=== PATIENT | male | born 1970 | race Hispanic/Latino ===

== ENCOUNTER 2023-07-15 17:50 | Emergency (ER) | payer BC, OTHER ==
[2023-07-15] MEDS ORDERED: Ketorolac Tromethamine 30 MG (1 mL) VIAL ONE (18:10)
[2023-07-15] MEDS ORDERED: Acetaminophen 500 MG TAB ONE (18:10)
[2023-07-15] MEDS ORDERED: Ondansetron PF 4 MG/2 ML Vial ONE (18:10)
[2023-07-15 18:17] LABS: Hematocrit 41.9 % (42.0-52.0); Hemoglobin 14.6 g/dL (14.0-18.0); Mean Corpuscular HGB CONC 34.7 g/dL (32.0-36.0); Mean Corpuscular Hemoglobin 29.4 pg (27.0-31.0); Mean Corpuscular Volume 84.6 fl (78.0-98.0); RBC Distribution Width 10.7 % (11.5-14.5); Red Blood Cell (RBC) Count 4.96 mill/uL (4.70-6.10); White Blood Cell (WBC) Count 8.8 10x3/uL (4.8-10.8)
[2023-07-15 18:32] LABS: ALT (SGPT) 62 U/L (8-55); AST (SGOT) 66 U/L (5-34); Albumin 3.1 g/dL (3.5-5.0); Alkaline Phosphatase 98 U/L (40-110); Anion Gap 20 mmol/L (10-20); BUN (Urea Nitrogen) 23 mg/dL (8.4-25.7); Bilirubin, Total 1.1 mg/dL (0.2-1.2); Calc. Creatinine Clearance 0 mL/min (70-130); Calcium 8.5 mg/dL (7.8-10.44); Carbon Dioxide 21 mmol/L (22-29); Chloride 92 mmol/L (98-107); Estimated GFR 57; Globulin 3.2 g/dL (2.4-3.5); Glucose 247 mg/dL (70-105); Lipase 19 U/L (8-78); Magnesium 1.7 mg/dL (1.6-2.6); Potassium 3.7 mmol/L (3.5-5.1); Protein, Total 6.3 g/dL (6.0-8.3); Sodium 129 mmol/L (136-145)
[2023-07-15 18:35] LABS: Band 27 % (5-11); Lymphocytes 5 % (21-51); MDiff Complete? YES; Monocytes 6 % (0-10); Neutrophil 59 % (42-75); Platelet Count 47 10x3/uL (130-400)
[2023-07-15 18:36] LABS: Platelet Adequacy Comment Appears Decreased
[2023-07-15 18:38] LABS: Critical Call Chem-Lactate NUR.MB22@1838
[2023-07-15] MEDS ORDERED: Cefepime 2 GM VIAL ONE (18:45)
[2023-07-15] MEDS ORDERED: Sodium Chloride 0.9% 100 ML ONE (18:45)
[2023-07-15] MEDS ORDERED: Azithromycin 500 MG VIAL ONE (18:45)
[2023-07-15 19:07] LABS: Bilirubin Moderate (Negative); Blood, Urine Large (Negative); Clarity Cloudy (Clear); Glucose, Urine (Dipstick) 500 mg/dL (Negative); Ketone, Urine 40 mg/dL (Negative); Leukocyte Negative (Negative); Nitrite Negative (Negative); Protein, Urine (Dipstick) > or equal to 300 mg/dL (Neg-Trace); Specific Gravity, Urine 1.025 (1.005-1.030); pH, Urine 5.5 (5.0-9.0)
[2023-07-15 19:14] LABS: Bacteria/HPF 4+ HPF (None Seen); CAUTI Indications for Culture Pelvic or flank pain; Squamous Epithelial 0-3 HPF (0-3)
[2023-07-15 19:19] LABS: Influenza A by NAA Not Detected (NotDetected); Influenza B by NAA Not Detected (NotDetected); SARS-CoV-2 NAA Rapid Test Not Detected (NotDetected)
[2023-07-15 19:25] LABS: Urine Culture Reflex No No
[2023-07-15 19:49] LABS: Base Excess-Venous -4.6 mmol/L (-2.0 to 3.0); Bicarbonate (HCO3v) 19.5 mmol/L (22.0-28.0); CO2 Tension (PvCO2) 31.2 mmHg (42.0-51.0); Calcium, Ionized 1.02 mmol/L (1.15-1.33); Chloride 99 mmol/L (98-107); Potassium 3.1 mmol/L (3.5-5.1); Sodium 133 mmol/L (138-145); T. Carbon Dioxide 20.4 mmol/L (22.0-28.0); vO2 Saturation-calc 96.6 % (60.0-85.0)
[2023-07-15] MEDS ORDERED: Norepinephrine 4 MG/4 ML VIAL ONE (19:54)
[2023-07-15 21:04] LABS: Lactic Acid 2.5 mmol/L (0.5-2.2)
[2023-07-15 23:48] LABS: HBsAg Index 0.25 S/CO (0-0.99); Hep A IgM AB NONREACTIVE (NonReactive); Hep A IgM S/CO 0.32 S/CO (0-0.79); Hep B Surf Ag NONREACTIVE S/CO (NonReactive); Hep C IgG Ab NONREACTIVE S/CO (NonReactive); Hep C Index 0.13 S/CO (0-0.79); Hepatitis B Core IgM Abs NONREACTIVE S/CO (NonReactive)
== END 2023-07-15 21:26 | disposition short-term general hospital (02) ==
LOC: BURERS 17:50
DX: A41.9 Sepsis, unspecified organism (principal); R82.71 Bacteriuria; E86.0 Dehydration; E11.65 Type 2 diabetes mellitus with hyperglycemia; Z79.4 Long term (current) use of insulin
CPT/HCPCS: 36415; 71045; 80053; 80074; 81001; 82010; 82330; 82803; 83605; 83690; 83735; 85025; 87040; 87086; 93005; 94760; 96365; 96367; 96375; J0456; J0692; J1885; J2405; J3490